=== PATIENT | female | born 1960 | race American Indian/Alaskan Native ===

== ENCOUNTER 2016-11-30 02:02 | Emergency (ER) | payer BC, OTHER ==
--- NOTE | 2016-11-30 04:29 | XRay Report ---
FINAL REPORT EXAM: XR SHOULDER 2 LT HISTORY: LT SHOULDER pain COMPARISON: None available. FINDINGS: Three views of the left shoulder obtained. Mild osteophyte of the AC joint. Glenohumeral joint space preserved. No acute fracture dislocation. IMPRESSION: No acute bony abnormality. Mild degenerative changes of the AC joint.
--- NOTE | 2016-11-30 04:44 | Emergency Department Report ---
Upper Extremity - HPI Chief Complaint: Extremity Injury, Upper Stated Complaint: L SIDE PAIN Time Seen by Provider: 11/30/16 04:02 Upper Extremity: Left Shoulder Occurred When: >5 Days Severity: moderate Symptoms: Yes Pain with Movement, No Deformity, No Limited Range of Movement, No Numbness, No Weakness, No Swelling, No Bruising/Ecchymosis, No Laceration or Abrasion Other History: 56-year-old female past medical history hypertension presents with complaint of several weeks of left-sided shoulder pain. 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 States that she has been experiencing pain with rotation of her left shoulder. Denies any chest pain or shortness of breath no palpitations no nausea or vomiting reported. Pain specifically worse with elevation of left shoulder. Patient denies any trauma. Patient does repetitive movements while cleaning with her left shoulder on a daily basis. ED Review of Systems ROS: Stated complaint: L SIDE PAIN Other details as noted in HPI Constitutional: denies: chills, fever Eyes: denies: eye pain, eye discharge, vision change ENT: denies: ear pain, throat pain Respiratory: denies: cough, shortness of breath, wheezing Cardiovascular: denies: chest pain, palpitations Endocrine: no symptoms reported Gastrointestinal: denies: abdominal pain, nausea, diarrhea Genitourinary: denies: urgency, dysuria, discharge Musculoskeletal: as per HPI. denies: back pain, joint swelling, arthralgia Skin: denies: rash, lesions Neurological: denies: headache, weakness, paresthesias Psychiatric: denies: anxiety, depression Hematological/Lymphatic: denies: easy bleeding, easy bruising ED Past Medical Hx - Past Medical History Previous Medical History?: No - Surgical History Past Surgical History?: Yes Additional Surgical History: Hysterectomy - Social History Smoking Status: Current Every Day Smoker Substance Use Type: None - Medications Home Medications: Home Medications Medication Instructions Recorded Confirmed Last Taken Type Cyclobenzaprine [Flexeril] 10 mg PO TID PRN #25 tablet 11/30/16 Unknown Rx Ibuprofen [Motrin] 800 mg PO Q8HR PRN #25 tablet 11/30/16 Unknown Rx Upper Extremity Exam - Exam General: Vital signs noted. No distress. Alert and acting appropriately. Head and Torso: No HEENT Abnormality, No Neck Tenderness, No Chest/Lungs Abnormality, No Abdominal Tenderness, No Back Tenderness Shoulder Exam: Yes Shoulder Tenderness (mild reproducible tenderness anterior left deltoid region), Yes Normal Range of Motion in Shoulder (motion flexion extension abduction adduction internal and external rotation fully intact left shoulder but mild pain with shoulder abduction), No Clavicle Tenderness, No Shoulder Deformity, No AC Joint Tenderness Arm Exam: No Arm/Humerus Tenderness, No Arm Deformity Elbow: No Elbow Tenderness, No Normal Range of Motion in Elbow, No Elbow Deformity Forearm: No Forearm Tenderness, No Forearm Deformity, No Pain with Pronation, No Pain with Supination Wrist: Yes Normal ROM in Wrist, No Wrist Tenderness, No Wrist Deformity, No Snuffbox Tenderness, No Pain with Axial Thumb Compression Hand: Yes Normal ROM in Digit(s), No Hand Tenderness, No Hand Deformity, No Digit Tenderness, No Digit(s) Deformity, No Tendon Dysfunction CMS Exam: No Broken Skin, No Normal Distal Pulses, No Normal Capillary Refill, No Normal Distal Sensation ED Course Vital Signs 11/30/16 02:47 Temperature 98.4 F Pulse Rate 86 Respiratory 18 Rate Blood Pressure 154/103 O2 Sat by Pulse 98 Oximetry ED Medical Decision Making - Medical Decision Making A/P: Left shoulder sprain, possible rotator cuff injury 1-x-ray left shoulder shows mild arthritic changes 2-referral to orthopedics 3-short course of anti-inflammatories for pain control 4- no neurovascular compromise left upper extremity. Patient has no associated chest pain pain is nonradiating and reproducible with range of motion of the left shoulder Critical care attestation.: If time is entered above; I have spent that time in minutes in the direct care of this critically ill patient, excluding procedure time. ED Disposition Clinical Impression: Shoulder pain, left Qualifiers: Chronicity: acute Qualified Code(s): M25.512 - Pain in left shoulder Disposition: DISCHARGED TO HOME OR SELFCARE Is pt being admited?: No Does the pt Need Aspirin: No Condition: Stable Instructions: Rotator Cuff Injury (ED), Rotator Cuff Tendinitis (ED), Shoulder Bursitis (ED) Prescriptions: Cyclobenzaprine [Flexeril] 10 mg PO TID PRN #25 tablet PRN Reason: Muscle Spasm Ibuprofen [Motrin] 800 mg PO Q8HR PRN #25 tablet PRN Reason: Pain Referrals: KEO STUART MD [Primary Care Provider] - 3-5 Days YESI ALMANZA MD [Staff Physician] - 3-5 Days [facility] [Provider Group] - 3-5 Days Forms: Work/School Release Form(ED) Time of Disposition: 04:38
[2016-11-30] MEDS ORDERED: FLEXERIL PO ONE (04:46)
[2016-11-30 04:51] VITALS: BP 145/92
== END 2016-11-30 04:51 | disposition home or self-care (01) ==
LOC: EEVIPCON 02:02 → ED 02:02
DX: M25.512 Pain in left shoulder (principal); F17.200 Nicotine dependence, unspecified, uncomplicated
CPT/HCPCS: 99283

== ENCOUNTER 2018-09-04 10:48 | Emergency (ER) | payer BC ==
--- NOTE | 2018-09-04 12:22 | Emergency Department Report ---
ED Lower Extremity HPI - General Chief Complaint: Extremity Injury, Lower Stated Complaint: (R) THIGH SWOLLEN Time Seen by Provider: 09/04/18 12:19 Source: patient Mode of arrival: Ambulatory Limitations: No Limitations - History of Present Illness Initial Comments: Patient reports left upper leg pain that started yesterday after attempting to put weight on it. Complaint: other (left leg pain) Onset/Timin -: hour(s) Injury: Thigh: Left Type of Injury: other (none) Place: home Severity: severe Severity scale (0 -10): 9 Improves With: rest Worsens With: weight bearing Context: other (denies any injury) Other Symptoms: other (none) Associated Symptoms: able to partially bear weight. denies: snap/pop sensation, swelling, numbness, tingling, ambulatory - Related Data Previous Rx's Medication Instructions Recorded Last Taken Type Cyclobenzaprine [Flexeril] 10 mg PO TID PRN #25 tablet 11/30/16 Unknown Rx Ibuprofen [Motrin 800 MG tab] 800 mg PO Q8HR PRN #25 tablet 09/04/18 Unknown Rx methOCARBAMOL [Robaxin TAB] 500 mg PO Q6H PRN #20 tablet 09/04/18 Unknown Rx Allergies Allergy/AdvReac Type Severity Reaction Status Date / Time acetaminophen [From Percocet] AdvReac Itching Verified 09/04/18 10:48 hydrocodone bitartrate AdvReac Unknown Verified 09/04/18 10:48 [From Lortab] oxycodone HCl [From Percocet] AdvReac Itching Verified 09/04/18 10:48 ED Review of Systems ROS: Stated complaint: (R) THIGH SWOLLEN Other details as noted in HPI Constitutional: denies: chills, fever Eyes: denies: eye pain, eye discharge, vision change ENT: denies: ear pain, throat pain Respiratory: denies: cough, orthopnea, shortness of breath, SOB with exertion, SOB at rest, stridor, wheezing Cardiovascular: denies: chest pain, palpitations, dyspnea on exertion, orthopnea Endocrine: no symptoms reported Gastrointestinal: denies: abdominal pain, nausea, diarrhea Genitourinary: denies: urgency, dysuria, discharge Musculoskeletal: arthralgia (left thigh). denies: back pain, joint swelling Skin: denies: rash, lesions Neurological: denies: headache, weakness, paresthesias Psychiatric: denies: anxiety, depression Hematological/Lymphatic: denies: easy bleeding, easy bruising ED Past Medical Hx - Past Medical History Previous Medical History?: No - Surgical History Past Surgical History?: No Additional Surgical History: Hysterectomy - Social History Smoking Status: Current Every Day Smoker Substance Use Type: Alcohol - Medications Home Medications: Home Medications Medication Instructions Recorded Confirmed Last Taken Type Cyclobenzaprine [Flexeril] 10 mg PO TID PRN #25 tablet 11/30/16 Unknown Rx Ibuprofen [Motrin 800 MG tab] 800 mg PO Q8HR PRN #25 tablet 09/04/18 Unknown Rx methOCARBAMOL [Robaxin TAB] 500 mg PO Q6H PRN #20 tablet 09/04/18 Unknown Rx ED Physical Exam - General Limitations: No Limitations General appearance: alert, in no apparent distress - Head Head exam: Present: atraumatic, normocephalic - Neck Neck exam: Present: normal inspection, full ROM. Absent: tenderness, meningismus, lymphadenopathy, thyromegaly - Respiratory Respiratory exam: Present: normal lung sounds bilaterally. Absent: respiratory distress, wheezes, rales, rhonchi, stridor, chest wall tenderness, accessory muscle use, prolonged expiratory - Cardiovascular Cardiovascular Exam: Present: regular rate, normal rhythm, normal heart sounds. Absent: systolic murmur, diastolic murmur, rubs, gallop - Extremities Exam Extremities exam: Present: normal inspection - Expanded Lower Extremity Exam Left Hip exam: Present: normal inspection, full ROM Upper Leg exam: Present: normal inspection, full ROM (limited by pain), tenderness. Absent: swelling, abrasion, laceration, ecchymosis, deformity, crepidus, dislocation, erythema Knee exam: Present: normal inspection, full ROM Lower Leg exam: Present: normal inspection, full ROM Ankle exam: Present: normal inspection, full ROM Foot/Toe exam: Present: normal inspection, full ROM Neuro vascular tendon exam: Present: no vascular compromise. Absent: pulse deficit, abnormal cap refill, motor deficit, sensory deficit, tendon deficit, extremity cold to touch, pallor, abnormal 2-point discrimination, decreased fine/light touch, foot drop, significant pain with passive ROM of distal joint Gait: Positive: observed and limited by pain - Back Exam Back exam: Present: normal inspection - Neurological Exam Neurological exam: Present: alert, oriented X3, CN II-XII intact, normal gait, reflexes normal. Absent: motor sensory deficit - Psychiatric Psychiatric exam: Present: normal affect, normal mood - Skin Skin exam: Present: warm, dry, intact, normal color. Absent: rash ED Course Vital Signs 09/04/18 09/04/18 11:55 15:37 Temperature 98.5 F Pulse Rate 73 83 Respiratory 18 16 Rate Blood Pressure 179/83 Blood Pressure 157/93 [Left] O2 Sat by Pulse 97 97 Oximetry - Reevaluation(s) Reevaluation #1: 09/04/18 12:25 laboratory and Doppler ultrasound ordered ED Lower Extremity MDM - Lab Data Result diagrams: 09/04/18 14:29 09/04/18 14:29 Lab Results 09/04/18 09/04/18 Range/Units 14:29 14:29 WBC 8.6 (4.5-11.0) K/mm3 RBC 4.60 (3.65-5.03) M/mm3 Hgb 13.4 (10.1-14.3) gm/dl Hct 40.7 (30.3-42.9) % MCV 89 (79-97) fl MCH 29 (28-32) pg MCHC 33 (30-34) % RDW 15.1 (13.2-15.2) % Plt Count 458 H (140-440) K/mm3 Lymph % (Auto) 27.5 (13.4-35.0) % [place] % (Auto) 5.9 (0.0-7.3) % Eos % (Auto) 2.2 (0.0-4.3) % Baso % (Auto) 0.8 (0.0-1.8) % Lymph # 2.4 (1.2-5.4) K/mm3 [place] # 0.5 (0.0-0.8) K/mm3 Eos # 0.2 (0.0-0.4) K/mm3 Baso # 0.1 (0.0-0.1) K/mm3 Seg Neutrophils % 63.6 (40.0-70.0) % Seg Neutrophils # 5.5 (1.8-7.7) K/mm3 Sodium 143 (137-145) mmol/L Potassium 4.0 (3.6-5.0) mmol/L Chloride 105.4 (98-107) mmol/L Carbon Dioxide 27 (22-30) mmol/L Anion Gap 15 mmol/L BUN 15 (7-17) mg/dL Creatinine 0.5 L (0.7-1.2) mg/dL Estimated GFR > 60 ml/min BUN/Creatinine Ratio 30 % Glucose 123 H (65-100) mg/dL Calcium 9.2 (8.4-10.2) mg/dL Vital Signs 09/04/18 09/04/18 11:55 15:37 Temperature 98.5 F Pulse Rate 73 83 Respiratory 18 16 Rate Blood Pressure 179/83 Blood Pressure 157/93 [Left] O2 Sat by Pulse 97 97 Oximetry - Radiology Data Radiology results: image reviewed EXAM: US DOPPLER VENOUS LOWER EXTREMITY UNILATERAL HISTORY: LT.THIGH PAIN TECHNIQUE: Grayscale and color and spectral Doppler ultrasound imaging of the left lower extremity was performed for the purposes of assessing for deep venous thrombosis. PRIORS: None. FINDINGS: No evidence of deep venous thrombosis is seen within the left common femoral through the posterior tibial and peroneal veins. Normal compression and color flow is seen throughout the venous system of the left lower extremity. Normal augmentation was seen. IMPRESSION: Negative for left lower extremity deep venous thrombosis. - Medical Decision Making During the course of ED, laboratory studies and Doppler US was ordered, which revealed negative for left lower extremity deep venous thrombosis.Patient was sent home with prescription for Robaxin and Ibuprofen, instructed to follow up with the selective referral given at discharge. She verbalized understanding - Differential Diagnosis Left Leg Pain, DVT Critical care attestation.: If time is entered above; I have spent that time in minutes in the direct care of this critically ill patient, excluding procedure time. ED Disposition Clinical Impression: Left leg pain Disposition: DC-01 TO HOME OR SELFCARE Is pt being admited?: No Does the pt Need Aspirin: No Condition: Stable Instructions: Arthralgia (ED) Additional Instructions: Take medication as directed. Follow up with the selective referral given at discharge. Return back to the ED for worsening symptoms or concerns Prescriptions: Ibuprofen [Motrin 800 MG tab] 800 mg PO Q8HR PRN #25 tablet PRN Reason: Pain methOCARBAMOL [Robaxin TAB] 500 mg PO Q6H PRN #20 tablet PRN Reason: Spasms Referrals: CLAUDIA FABIAN, RN [Primary Care Provider] - 3-5 Days Forms: Work/School Release Form(ED) Time of Disposition: 15:24
[2018-09-04 14:39] LABS: Basophils # (Auto) 0.1 K/mm3 (0.0-0.1); Basophils % (Auto) 0.8 % (0.0-1.8); Eosinophils # (Auto) 0.2 K/mm3 (0.0-0.4); Eosinophils % (Auto) 2.2 % (0.0-4.3); Hematocrit 40.7 % (30.3-42.9); Hemoglobin 13.4 gm/dl (10.1-14.3); Lymphocytes # (Auto) 2.4 K/mm3 (1.2-5.4); Lymphocytes % (Auto) 27.5 % (13.4-35.0); Mean Corpuscular HGB Conc 33 % (30-34); Mean Corpuscular Volume 89 fl (79-97); Monocytes # (Auto) 0.5 K/mm3 (0.0-0.8); Monocytes % (Auto) 5.9 % (0.0-7.3); Platelet Count 458 K/mm3 (140-440); Red Cell Distribution Width 15.1 % (13.2-15.2)
[2018-09-04 14:58] LABS: BUN/Creatinine Ratio 30; Blood Urea Nitrogen 15 mg/dL (7-17); Calcium 9.2 mg/dL (8.4-10.2); Hemolysis Index 1
--- NOTE | 2018-09-04 15:00 | Vascular Lab Report ---
FINAL REPORT EXAM: US DOPPLER VENOUS LOWER EXTREMITY UNILATERAL HISTORY: LT.THIGH PAIN TECHNIQUE: Grayscale and color and spectral Doppler ultrasound imaging of the left lower extremity w as performed for the purposes of assessing for deep venous thrombosis. PRIORS: None. FINDINGS: No evidence of deep venous thrombosis is seen within the left common femoral through the posterior ti bial and peroneal veins. Normal compression and color flow is seen throughout the venous system of th e left lower extremity. Normal augmentation was seen. IMPRESSION: Negative for left lower extremity deep venous thrombosis.
[2018-09-04 15:38] VITALS: BP 157/93
== END 2018-09-04 15:37 | disposition home or self-care (01) ==
LOC: ED 10:48
DX: M79.605 Pain in left leg (principal); F17.200 Nicotine dependence, unspecified, uncomplicated; Z90.710 Acquired absence of both cervix and uterus; Z88.6 Allergy status to analgesic agent; Z88.8 Allergy status to other drugs, medicaments and biological substances
CPT/HCPCS: 36415; 80048; 85025; 99284